=== PATIENT | female | born 1985 | race Caucasian/White ===

== ENCOUNTER 2017-05-08 21:59 | Emergency (ER) | payer MEDICAID ==
[~2017-05-08] VITALS: Ht 152.4 cm; Wt 61.2 kg
[2017-05-08 21:59] VITALS: BP_SYST 124
[~2017-05-08 21:59] MED LIST: MICROBID
[2017-05-09 00:16] LABS: BILIRUBIN,URINE NEGATIVE (NEGATIVE); BLOOD, URINE NEGATIVE (NEGATIVE); CLARITY/URINE CLEAR (CLEAR); COLOR,URINE YELLOW (YELLOW); GLUCOSE,URINE NEGATIVE (NEGATIVE); KETONES,URINE NEGATIVE (NEGATIVE); LEUKOCYTE ESTERASE ,URINE NEGATIVE (NEGATIVE); NITRITE, URINE NEGATIVE (NEGATIVE); PROTEIN URINE NEGATIVE (NEGATIVE); UROBILINOGEN,URINE 0.2 (0.2-1.0)
[2017-05-09 00:45] VITALS: BP_SYST 122
== END 2017-05-09 00:45 | disposition home or self-care (01) ==
LOC: SED 21:59
DX: J32.0 Chronic maxillary sinusitis (principal); G43.909 Migraine, unspecified, not intractable, without status migrainosus
CPT/HCPCS: 81003; 81025; 99283

== ENCOUNTER 2017-05-31 19:42 | Emergency (ER) | payer MEDICAID ==
[~2017-05-31] VITALS: Ht 152.4 cm; Wt 61.2 kg
[2017-05-31 19:50] VITALS: BP_SYST 149
[2017-05-31] MEDS ORDERED: MORPHINE 2 MG/ML INJ. SYRINGE IVP ONE (20:15)
[2017-05-31] MEDS ORDERED: fentaNYL CITRATE/PF 100 MCG/2 ML AMP IVP ONE (21:15)
[2017-05-31] MEDS ORDERED: traMADol HCL HCL 50 MG TABLET (ULTRAM) PO ONE (22:15)
[2017-05-31] MEDS ORDERED: NACL 0.9% 1,000 ML IV ONE (23:00)
[2017-05-31] MEDS ORDERED: HYDROmorphone 1 MG INJ. 1 MG/ML AMPUL IM ONE (23:00)
[2017-05-31 23:07] LABS: BILIRUBIN,URINE NEGATIVE (NEGATIVE); BLOOD, URINE NEGATIVE (NEGATIVE); CLARITY/URINE HAZY (CLEAR); COLOR,URINE YELLOW (YELLOW); GLUCOSE,URINE NEGATIVE (NEGATIVE); KETONES,URINE NEGATIVE (NEGATIVE); LEUKOCYTE ESTERASE ,URINE TRACE (NEGATIVE); NITRITE, URINE NEGATIVE (NEGATIVE); PROTEIN URINE TRACE (NEGATIVE)
[2017-05-31 23:27] LABS: BASOPHILS # (AUTO) 0.1 K/uL (0.0-0.2); BASOPHILS % (AUTO) 0.6 % (0.0-2.0); EOSINOPHILS # (AUTO) 0.2 K/uL (0.0-0.4); EOSINOPHILS % (AUTO) 1.9 % (0.0-4.0); HEMATOCRIT 46.5 % (36-48); LYMPHOCYTES # (AUTO) 2.7 K/uL (1.0-5.5); LYMPHOCYTES % (AUTO) 31.5 % (20.5-51.5); MEAN CORPUSCULAR HEMOGLOBIN 27 pg (27-31); MEAN CORPUSCULAR HGB CONC 32 % (32-36); MEAN CORPUSCULAR VOLUME 85 fL (79.0-98.0); MONOCYTES # (AUTO) 0.5 K/uL (0.0-1.0); MONOCYTES % (AUTO) 6.3 % (1.7-9.3); NEUTROPHILS # (AUTO) 4.9 K/uL (1.8-7.7); NEUTROPHILS % (AUTO) 59.7 % (40.0-70.0); PLATELET COUNT (AUTO) 407 K/uL (130-430); RED BLOOD CELL COUNT(AUTO) 5.49 MIL/uL (4.2-6.2); RED CELL DISTRIBUTION WIDTH 12.1 % (9.0-15.0); WHITE BLOOD COUNT (AUTO) 8.4 K/uL (4.8-10.8)
[2017-05-31 23:35] VITALS: BP_SYST 136
[2017-05-31 23:38] LABS: CALCIUM 8.8 mg/dL (8.4-11.0); CREATININE 0.8 mg/dL (0.55-1.30); POTASSIUM 3.9 mmol/L (3.5-5.1)
[2017-05-31 23:42] LABS: BACTERIA,URINE MODERATE /HPF (None Seen); RBC,URINE 0-3 /HPF (0-3)
[2017-05-31 23:43] LABS: ALBUMIN 4.5 g/dL (3.4-4.8); TOTAL BILIRUBIN 0.4 mg/dL (0.0-1.0); TOTAL PROTEIN, SERUM 8.7 g/dL (6.4-8.3)
[2017-05-31 23:43] LABS: MUCUS,URINE 1+ /LPF (None Seen)
[2017-05-31 23:46] LABS: FINE GRANULAR CASTS,URINE 0-10 /LPF (None Seen)
[2017-06-01] LABS: PROTHROMBIN TIME 10.4 SECS (9.5-12.5)
== END 2017-05-31 23:35 | disposition home or self-care (01) ==
LOC: SED 19:42
DX: S39.011A Strain of muscle, fascia and tendon of abdomen, initial encounter (principal); G43.909 Migraine, unspecified, not intractable, without status migrainosus; R03.0 Elevated blood-pressure reading, without diagnosis of hypertension; X58.XXXA Exposure to other specified factors, initial encounter; Y93.39 Activity, other involving climbing, rappelling and jumping off; Y92.89 Other specified places as the place of occurrence of the external cause; Y99.8 Other external cause status
CPT/HCPCS: 36415; 76830; 76857; 80053; 81000; 85025; 85610; 85730; 87086; 96374; 96375; 99285; J1170; J2270; J3010; J7030

== ENCOUNTER 2019-04-18 04:27 | Emergency (ER) | payer MEDICAID ==
[~2019-04-18] VITALS: Ht 152.4 cm; Wt 59.0 kg
[2019-04-18 04:30] VITALS: BP_SYST 133
[2019-04-18] MEDS ORDERED: NACL 0.9% 1,000 ML IV ONE (04:53)
[2019-04-18] MEDS ORDERED: ONDANSETRON HCL 4 MG/2 ML VIAL IVP ONE (05:00)
[2019-04-18] MEDS ORDERED: MORPHINE 4 MG/ML INJ. SYRINGE IVP ONE (05:00)
[2019-04-18] MEDS ORDERED: FAMOTIDINE PF 20 MG/2 ML VIAL IVP ONE (05:00)
[2019-04-18 05:28] LABS: BASOPHILS # (AUTO) 0.1 K/uL (0.0-0.2); BASOPHILS % (AUTO) 0.4 % (0.0-2.0); EOSINOPHILS # (AUTO) 0.1 K/uL (0.0-0.4); EOSINOPHILS % (AUTO) 0.4 % (0.0-4.0); HEMATOCRIT 43.9 % (36-48); HEMOGLOBIN 14.8 g/dL (12.0-16.0); LYMPHOCYTES # (AUTO) 0.8 K/uL (1.0-5.5); LYMPHOCYTES % (AUTO) 5.9 % (20.5-51.5); MEAN CORPUSCULAR HEMOGLOBIN 28 pg (27-31); MEAN CORPUSCULAR HGB CONC 34 % (32-36); MEAN CORPUSCULAR VOLUME 83 fL (79.0-98.0); MONOCYTES # (AUTO) 0.5 K/uL (0.0-1.0); MONOCYTES % (AUTO) 3.7 % (1.7-9.3); NEUTROPHILS # (AUTO) 12.5 K/uL (1.8-7.7); NEUTROPHILS % (AUTO) 89.6 % (40.0-70.0); PLATELET COUNT (AUTO) 362 K/uL (130-430); RED BLOOD CELL COUNT(AUTO) 5.29 MIL/uL (4.2-6.2); RED CELL DISTRIBUTION WIDTH 12.7 % (9.0-15.0); WHITE BLOOD COUNT (AUTO) 13.9 K/uL (4.8-10.8)
[2019-04-18 05:41] LABS: CALCIUM 8.8 mg/dL (8.4-11.0); CREATININE 0.83 mg/dL (0.55-1.30); POTASSIUM 3.7 mmol/L (3.5-5.1)
[2019-04-18] MEDS ORDERED: KETOROLAC TROMETHAMINE 15 MG VIAL IVP ONE (05:45)
[2019-04-18] MEDS ORDERED: PROCHLORPERAZINE EDISYLATE 10 MG/2 ML VIAL IVP ONE (05:45)
[2019-04-18 05:48] LABS: TOTAL BILIRUBIN 0.7 mg/dL (0.0-1.0)
[2019-04-18 06:50] VITALS: BP_SYST 133
[2019-04-18 06:50] LABS: BILIRUBIN,URINE NEGATIVE (NEGATIVE); BLOOD, URINE NEGATIVE (NEGATIVE); CLARITY/URINE CLEAR (CLEAR); COLOR,URINE YELLOW (YELLOW); GLUCOSE,URINE NEGATIVE (NEGATIVE); KETONES,URINE NEGATIVE (NEGATIVE); LEUKOCYTE ESTERASE ,URINE NEGATIVE (NEGATIVE); NITRITE, URINE NEGATIVE (NEGATIVE); PROTEIN URINE NEGATIVE (NEGATIVE); UROBILINOGEN,URINE 0.2 (0.2-1.0)
== END 2019-04-18 06:50 | disposition home or self-care (01) ==
LOC: SED 04:27
DX: R10.30 Lower abdominal pain, unspecified (principal); R11.2 Nausea with vomiting, unspecified; R19.7 Diarrhea, unspecified
CPT/HCPCS: 36415; 80053; 81003; 85025; 96361; 96374; 96375; 99283; J0780; J1885; J2270; J2405; J3490; J7030

== ENCOUNTER 2019-07-09 19:48 | Emergency (ER) | payer MEDICAID ==
[~2019-07-09] VITALS: Ht 152.4 cm; Wt 63.5 kg
[2019-07-09 20:17] VITALS: BP_SYST 118
[2019-07-09] MEDS ORDERED: DIPH-TET-PERTUS Vaccine 0.5 ML VIAL (ADACEL) I.M. ONE (22:30)
[2019-07-09] MEDS ORDERED: CEPHALEXIN 500 MG CAPSULE PO ONE (22:30)
[2019-07-09 22:58] VITALS: BP_SYST 121
== END 2019-07-09 22:58 | disposition home or self-care (01) ==
LOC: SED 19:48
DX: S70.362A Insect bite (nonvenomous), left thigh, initial encounter (principal); G43.909 Migraine, unspecified, not intractable, without status migrainosus; R03.0 Elevated blood-pressure reading, without diagnosis of hypertension; W57.XXXA Bitten or stung by nonvenomous insect and other nonvenomous arthropods, initial encounter; Y93.89 Activity, other specified; Y92.89 Other specified places as the place of occurrence of the external cause; Y99.8 Other external cause status
CPT/HCPCS: 90715; 99283

== ENCOUNTER 2020-07-03 07:56 | Emergency (ER) | payer MEDICAID ==
[~2020-07-03] VITALS: Ht 152.4 cm; Wt 65.8 kg
[2020-07-03 08:01] VITALS: BP_SYST 114
[2020-07-03] MEDS ORDERED: LORazepam 2 MG/ML VIAL IM ONE (08:30)
[2020-07-03 09:13] VITALS: BP_SYST 114
== END 2020-07-03 09:10 | disposition home or self-care (01) ==
LOC: SED 07:56
DX: F41.9 Anxiety disorder, unspecified (principal); G43.909 Migraine, unspecified, not intractable, without status migrainosus
CPT/HCPCS: 81025; 96372; 99283; J2060

== ENCOUNTER 2021-04-28 23:05 | Emergency (ER) | payer MEDICAID, SELFPAY ==
[~2021-04-28] VITALS: Ht 152.4 cm; Wt 63.5 kg
[2021-04-28 23:05] VITALS: BP_SYST 139
[2021-04-28] MEDS ORDERED: KETOROLAC TROMETHAMINE 60 MG/2 ML VIAL IM ONE (23:45)
[2021-04-29] MEDS ORDERED: KETOROLAC TROMETHAMINE 60 MG/2 ML VIAL IM ONE (00:05)
[2021-04-29 00:29] LABS: BASOPHILS # (AUTO) 0.1 K/uL (0.0-0.2); BASOPHILS % (AUTO) 0.6 % (0.0-2.0); EOSINOPHILS # (AUTO) 0.3 K/uL (0.0-0.4); EOSINOPHILS % (AUTO) 2.8 % (0.0-4.0); HEMATOCRIT 40.7 % (36-48); HEMOGLOBIN 13.7 g/dL (12.0-16.0); LYMPHOCYTES # (AUTO) 3.2 K/uL (1.0-5.5); LYMPHOCYTES % (AUTO) 30.4 % (20.5-51.5); MEAN CORPUSCULAR HEMOGLOBIN 28 pg (27-31); MEAN CORPUSCULAR HGB CONC 34 % (32-36); MEAN CORPUSCULAR VOLUME 84 fL (79.0-98.0); MONOCYTES # (AUTO) 0.7 K/uL (0.0-1.0); MONOCYTES % (AUTO) 6.7 % (1.7-9.3); NEUTROPHILS # (AUTO) 6.3 K/uL (1.8-7.7); NEUTROPHILS % (AUTO) 59.5 % (40.0-70.0); PLATELET COUNT (AUTO) 323 K/uL (130-430); RED BLOOD CELL COUNT(AUTO) 4.87 MIL/uL (4.2-6.2); WHITE BLOOD COUNT (AUTO) 10.6 K/uL (4.8-10.8)
[2021-04-29 00:33] LABS: CALCIUM 8.4 mg/dL (8.4-11.0); CREATININE 0.79 mg/dL (0.55-1.30); POTASSIUM 4.1 mmol/L (3.5-5.1)
[2021-04-29 00:38] LABS: ALBUMIN 3.6 g/dL (3.4-4.8); TOTAL BILIRUBIN 0.4 mg/dL (0.0-1.0)
[2021-04-29] MEDS ORDERED: CEPH250C PO (01:50)
[2021-04-29 02:02] VITALS: BP_SYST 129
== END 2021-04-29 02:01 | disposition home or self-care (01) ==
LOC: SED 23:05
DX: L03.211 Cellulitis of face (principal); R06.02 Shortness of breath; Z20.822 Contact with and (suspected) exposure to COVID-19
CPT/HCPCS: 36415; 71045; 80053; 81025; 85025; 86710; 87426; 96372; 99284; J1885

== ENCOUNTER 2021-11-27 05:22 | Emergency (ER) | payer MEDICAID, SELFPAY ==
[~2021-11-27] VITALS: Ht 152.4 cm; Wt 65.8 kg
[~2021-11-27 05:22] MED LIST changes: +CEPH250C PO
[2021-11-27 05:59] VITALS: BP_SYST 136
--- NOTE | 2021-11-27 06:25 | NUR ---
ER Dr. Sanchez in triage examining patient.
[2021-11-27] MEDS ORDERED: KETOROLAC TROMETHAMINE 30 MG VIAL IM ONE (06:30)
--- NOTE | 2021-11-27 06:50 | NUR ---
Swabbed nares for Covid-19 test
--- NOTE | 2021-11-27 07:14 | NUR ---
AFTER TRIAGE, PT WENT TO TRIAGE TENT.
[2021-11-27] MEDS ORDERED: ONDANSETRON 4 MG ODT TAB PO ONE (07:45)
[2021-11-27] MEDS ORDERED: MORPHINE 4 MG INJ. 4 MG/ML VIAL IM ONE (07:45)
--- NOTE | 2021-11-27 07:53 | NUR ---
Pt. has pain 8/ to BLE after toradol, IM morphine given
--- NOTE | 2021-11-27 08:45 | NUR ---
Patient given written and verbal discharge instructions and verbalizes understanding. ER Dr. Sanchez discussed with patient the results and treatment provided. Patient in stable condition. ID arm band removed. Patient educated on pain management and to follow up with PMD. Pain Scale 2. Opportunity for questions provided and answered.
[2021-11-27 08:48] VITALS: BP_SYST 126
--- NOTE | 2021-11-27 08:59 | NUR ---
CALLED AT GIVEN NUMBER AND COVID + RESULTS GIVEN TO PT
== END 2021-11-27 08:45 | disposition home or self-care (01) ==
LOC: SED 05:22
DX: U07.1 COVID-19 (principal); F41.9 Anxiety disorder, unspecified; R00.2 Palpitations; M79.18 Myalgia, other site; Z79.899 Other long term (current) drug therapy
CPT/HCPCS: 87426; 96372; 99284; J1885; J2270; Q0162; 36415

== ENCOUNTER 2022-03-05 21:28 | Emergency (ER) | payer MEDICAID ==
[~2022-03-05] VITALS: Ht 152.4 cm; Wt 68.0 kg
[2022-03-05 21:35] VITALS: BP_SYST 124
[2022-03-05] MEDS ORDERED: HYDR-3917 PO (21:45)
[2022-03-05] MEDS ORDERED: IBUP-1969 PO (21:45)
[2022-03-05] MEDS ORDERED: HYDROcodone/ACETAMIN 7.5-325 MG TAB PO ONE (22:15)
[2022-03-05 22:21] VITALS: BP_SYST 130
== END 2022-03-05 22:23 | disposition home or self-care (01) ==
LOC: SED 21:28
DX: S86.211A Strain of muscle(s) and tendon(s) of anterior muscle group at lower leg level, right leg, initial encounter (principal); X58.XXXA Exposure to other specified factors, initial encounter; Y93.64 Activity, baseball; Y92.89 Other specified places as the place of occurrence of the external cause; Y99.8 Other external cause status
CPT/HCPCS: 99283

== ENCOUNTER 2023-10-26 10:16 | Emergency (ER) | payer MEDICAID ==
[~2023-10-26] VITALS: Ht 152.4 cm; Wt 65.8 kg
[~2023-10-26 10:16] MED LIST changes: +HYDR-3917 PO; +IBUP-1969 PO
[2023-10-26 10:19] VITALS: BP_SYST 147; PULSE 117; RESP 18; TEMP 98.3; O2SAT 98
[2023-10-26] MEDS ORDERED: MECLIZINE HCL 25 MG TABLET (ANITVERT) PO ONE (11:45)
[2023-10-26] MEDS ORDERED: METOCLOPRAMIDE HCL 10 MG/2 ML VIAL IVP ONE (11:45)
[2023-10-26 12:27] LABS: COVID19 ANTIGEN SOFIA FIA NEGATIVE (NEGATIVE)
[2023-10-26 12:31] LABS: INFLUENZA TYPE B NEGATIVE (NEGATIVE)
[2023-10-26 12:34] LABS: INFLUENZA TYPE A Positive (NEGATIVE)
[2023-10-26] MEDS ORDERED: ACETAMINOPHEN 500 MG TABLET ONE (12:45)
[2023-10-26] MEDS ORDERED: OSEL75CA PO (12:57)
[2023-10-26] MEDS ORDERED: PSEU30TA36 PO (12:57)
[2023-10-26] MEDS ORDERED: IBUP-1969 PO (12:57)
[2023-10-26 13:10] LABS: BASOPHILS % (AUTO) 0.4 % (0.0-2.0); EOSINOPHILS # (AUTO) 0.1 K/uL (0.0-0.4); EOSINOPHILS % (AUTO) 0.6 % (0.0-4.0); HEMATOCRIT 42.9 % (36-48); HEMOGLOBIN 14.4 g/dL (12.0-16.0); LYMPHOCYTES # (AUTO) 0.7 K/uL (1.0-5.5); LYMPHOCYTES % (AUTO) 8.1 % (20.5-51.5); MEAN CORPUSCULAR HEMOGLOBIN 28 pg (27-31); MEAN CORPUSCULAR HGB CONC 34 % (32-36); MEAN CORPUSCULAR VOLUME 84 fL (79.0-98.0); MONOCYTES # (AUTO) 0.8 K/uL (0.0-1.0); MONOCYTES % (AUTO) 9.8 % (1.7-9.3); NEUTROPHILS % (AUTO) 81.1 % (40.0-70.0); PLATELET COUNT (AUTO) 335 K/uL (130-430); RED BLOOD CELL COUNT(AUTO) 5.11 MIL/uL (4.2-6.2); RED CELL DISTRIBUTION WIDTH 12.9 % (9.0-15.0); WHITE BLOOD COUNT (AUTO) 8.6 K/uL (4.8-10.8)
[2023-10-26 13:14] LABS: ANION GAP 11 (5-15); CALCIUM 9.4 mg/dL (8.4-11.0); CARBON DIOXIDE 26 mmol/L (23-29); CHLORIDE 100 mmol/L (98-107); CREATININE 0.88 mg/dL (0.55-1.30); GFR AFRICAN AMERICAN 92 mL/min (>90); GLUCOSE 103 mg/dL (74-106); POTASSIUM 3.6 mmol/L (3.5-5.1); SODIUM SERUM 137 mmol/L (136-145); UREA NITROGEN, BLOOD 10 mg/dL (8-21)
[2023-10-26 13:15] LABS: GFR NON AFRICAN-AMERICAN 76 mL/min (>90)
[2023-10-26 13:18] VITALS: BP_SYST 132; PULSE 92; RESP 17; TEMP 98.3; O2SAT 98
[2023-10-26 13:21] LABS: ALANINE AMINOTRANSFERASE 44 U/L (12-78); ALBUMIN 3.9 g/dL (3.4-4.8); ASPARTATE AMINOTRANSFERASE 24 U/L (10-37); TOTAL BILIRUBIN 0.7 mg/dL (0.0-1.0); TOTAL PROTEIN, SERUM 7.9 g/dL (6.4-8.3)
== END 2023-10-26 13:18 | disposition home or self-care (01) ==
LOC: SED 10:16
DX: J11.1 Influenza due to unidentified influenza virus with other respiratory manifestations (principal); R42 Dizziness and giddiness; Z79.899 Other long term (current) drug therapy; Z20.822 Contact with and (suspected) exposure to COVID-19
CPT/HCPCS: 99285; 96374; 71045; 87426; 80053; 85025; 84484; 36415; 93005; 81025; 87804 ×2; J8597; J2765